=== PATIENT | female | born 1960 | race Caucasian/White ===

== ENCOUNTER 2017-03-09 06:55 | Day surgery (SDC) | payer SELFPAY ==
[2017-03-09 08:14] VITALS: O2SAT 100
[2017-03-09] MEDS ORDERED: Propofol 10 mg/ml Inj (20 ML) ONE ×2 (08:32→08:44)
[2017-03-09] MEDS ORDERED: Lidocaine Hydrochloride 5 ML INJ ONE (08:32)
--- NOTE | 2017-03-09 08:33 | CP.SDSHP ---
Same Day Surgery H & P - History Proposed Procedure: colonoscopy Pre-Op Diagnosis: screening for colon cancer - Allergies Allergies: Allergies No Known Allergies Allergy (Verified 03/09/17 07:54) - Current Medications Current Medications: no current medications - Physical Exam General Appearance: NAD Vital Signs: Vital Signs 03/09/17 07:25 Temperature 97.5 F L Pulse Rate 65 Respiratory 19 Rate Blood Pressure 122/74 O2 Sat by Pulse 100 Oximetry Mental Status: Alert & Oriented x3 Heart: WNL Lungs: WNL GI: WNL - {Optional Preform as Required} Abdomen: WNL - Impression Impression: 56 year old female here for index screening colonoscopy, average risk Pt. Evaluated Today:Candidate for Anesthesia & Procedure: Yes - Date & Time Date: 03/09/17 Time: 08:33 Short Stay Discharge - Short Stay Discharge Admitting Diagnosis/Reason for Visit: SCREENING FOR COLON CANCER Disposition: HOME/ ROUTINE
[2017-03-09] MEDS ORDERED: Lactated Ringer's 500 ML IV ONE (08:34)
[2017-03-09 09:26] VITALS: TEMP 97.8
[2017-03-09 09:46] VITALS: BP 115/73; PULSE 65; RESP 16
== END 2017-03-09 10:01 | disposition home or self-care (01) ==
LOC: C.ENDO 06:55
PROVIDERS: ATTEND Internal Medicine Gastroenterology
DX: Z12.11 Encounter for screening for malignant neoplasm of colon (principal); K64.8 Other hemorrhoids
CPT/HCPCS: 45378; J2704; J7120

== ENCOUNTER 2019-02-28 11:05 | Outpatient (CLI) | payer BC | END 2019-02-28 11:06 | disposition home or self-care (01) | LOC: C.MAMMO 11:06 | DX: Z12.31 Encounter for screening mammogram for malignant neoplasm of breast (principal) ==